=== PATIENT | male | born 1980 | race Caucasian/White ===

== ENCOUNTER 2022-10-28 17:11 | Emergency (ER) | payer SELFPAY ==
[2022-10-28 17:27] VITALS: BP 111/69; PULSE 76; RESP 18; TEMP 98.8; BMI 30.2
[2022-10-28] MEDS ORDERED: IBUPROFEN 600 MG TABLET (FP) PO ONE ×2 (18:34→18:57)
[2022-10-28] MEDS ORDERED: OFLOXACIN 0.3% OTIC SOLUTION 5 ML BOTTLE AU ONE (19:30)
== END 2022-10-28 19:49 | disposition home or self-care (01) ==
LOC: JERFT 17:11
DX: H60.501 Unspecified acute noninfective otitis externa, right ear (principal); H92.01 Otalgia, right ear; H92.11 Otorrhea, right ear
CPT/HCPCS: 99283-25